=== PATIENT | female | born 1960 | race Caucasian/White ===

== ENCOUNTER → 2019-08-28 14:01 | Outpatient (BNVA) | payer MEDICARE, SELFPAY | PROVIDERS: Family Provider Family Medicine; PCP Family Medicine; Visit Provider Family Medicine | DX: Z13.6 Encounter for screening for cardiovascular disorders (principal); R16.0 Hepatomegaly, not elsewhere classified; E03.9 Hypothyroidism, unspecified; M51.06 Intervertebral disc disorders with myelopathy, lumbar region | CPT/HCPCS: 80053; 80061; 84443; 85025 ==

== ENCOUNTER → 2019-09-25 14:43 | Outpatient (BNVA) | payer MEDICARE, SELFPAY | PROVIDERS: Family Provider Family Medicine; PCP Family Medicine; Visit Provider Psychiatry & Neurology Psychiatry | DX: F41.1 Generalized anxiety disorder (principal); F33.42 Major depressive disorder, recurrent, in full remission; F43.12 Post-traumatic stress disorder, chronic; F17.290 Nicotine dependence, other tobacco product, uncomplicated | CPT/HCPCS: 99213 ==

== ENCOUNTER → 2019-11-25 13:36 | Outpatient (BNVA) | payer MEDICARE, SELFPAY | PROVIDERS: Family Provider Family Medicine; PCP Family Medicine; Visit Provider Family Medicine | DX: D50.9 Iron deficiency anemia, unspecified (principal); E03.9 Hypothyroidism, unspecified; E78.5 Hyperlipidemia, unspecified; M51.06 Intervertebral disc disorders with myelopathy, lumbar region | CPT/HCPCS: 80053; 80061; 82728; 83540; 84443; 85025 ==

== ENCOUNTER → 2019-12-23 08:15 | Outpatient (BNVA) | payer MEDICARE, SELFPAY | PROVIDERS: Family Provider Family Medicine; PCP Family Medicine; Visit Provider Psychiatry & Neurology Psychiatry | DX: F41.1 Generalized anxiety disorder (principal); F33.42 Major depressive disorder, recurrent, in full remission; F43.12 Post-traumatic stress disorder, chronic; F17.290 Nicotine dependence, other tobacco product, uncomplicated | CPT/HCPCS: 99213 ==

== ENCOUNTER 2020-01-29 20:00 | Outpatient (CLI) | payer MEDICARE, SELFPAY | END 2020-01-29 20:01 | disposition home or self-care (01) | LOC: SLEEP 01-30 09:19 | PROVIDERS: Family Provider Family Medicine; PCP Family Medicine; Visit Provider Family Medicine | DX: G47.33 Obstructive sleep apnea (adult) (pediatric) (principal) | CPT/HCPCS: 95811 ==

== ENCOUNTER → 2020-03-25 08:16 | Outpatient (BNVA) | payer MEDICARE, SELFPAY | PROVIDERS: Family Provider Family Medicine; PCP Family Medicine; Visit Provider Psychiatry & Neurology Psychiatry | DX: F33.42 Major depressive disorder, recurrent, in full remission (principal); F43.12 Post-traumatic stress disorder, chronic; F41.1 Generalized anxiety disorder; G47.33 Obstructive sleep apnea (adult) (pediatric) | CPT/HCPCS: 99214 ==

== ENCOUNTER → 2020-04-22 07:51 | Outpatient (BNVA) | payer MEDICARE, SELFPAY | PROVIDERS: Family Provider Family Medicine; PCP Family Medicine; Visit Provider Psychiatry & Neurology Psychiatry | DX: F41.1 Generalized anxiety disorder (principal); F33.42 Major depressive disorder, recurrent, in full remission; F43.12 Post-traumatic stress disorder, chronic; G47.33 Obstructive sleep apnea (adult) (pediatric) | CPT/HCPCS: 99213 ==

== ENCOUNTER → 2020-05-11 15:37 | Outpatient (BNVA) | payer MEDICARE, SELFPAY | PROVIDERS: Family Provider Family Medicine; PCP Family Medicine; Visit Provider Podiatrist Foot & Ankle Surgery | DX: S93.101A Unspecified subluxation of right toe(s), initial encounter (principal); X58.XXXA Exposure to other specified factors, initial encounter | CPT/HCPCS: 73630 ==

== ENCOUNTER → 2020-05-12 13:33 | Outpatient (BNVA) | payer MEDICARE, SELFPAY | PROVIDERS: Family Provider Family Medicine; PCP Family Medicine; Visit Provider Family Medicine | DX: E03.9 Hypothyroidism, unspecified (principal); J43.1 Panlobular emphysema | CPT/HCPCS: 84439; 84443 ==

== ENCOUNTER → 2020-05-27 09:15 | Outpatient (BNVA) | payer MEDICARE, SELFPAY | PROVIDERS: Family Provider Family Medicine; PCP Family Medicine; Visit Provider Psychiatry & Neurology Psychiatry | DX: F43.12 Post-traumatic stress disorder, chronic (principal); F33.42 Major depressive disorder, recurrent, in full remission; F41.1 Generalized anxiety disorder; G47.33 Obstructive sleep apnea (adult) (pediatric) | CPT/HCPCS: 99213 ==

== ENCOUNTER → 2020-08-19 09:31 | Outpatient (BNVA) | payer MEDICARE, SELFPAY | PROVIDERS: Family Provider Family Medicine; PCP Family Medicine; Visit Provider Psychiatry & Neurology Psychiatry | DX: F43.12 Post-traumatic stress disorder, chronic (principal); F33.42 Major depressive disorder, recurrent, in full remission; F41.1 Generalized anxiety disorder; G47.33 Obstructive sleep apnea (adult) (pediatric) | CPT/HCPCS: 99214 ==

== ENCOUNTER → 2020-08-20 13:35 | Outpatient (BNVA) | payer MEDICARE, SELFPAY | PROVIDERS: Family Provider Family Medicine; PCP Family Medicine; Visit Provider Family Medicine | DX: E03.9 Hypothyroidism, unspecified (principal); M17.11 Unilateral primary osteoarthritis, right knee | CPT/HCPCS: 84439; 84443 ==

== ENCOUNTER → 2020-10-29 08:38 | Outpatient (BNVA) | payer MEDICARE, SELFPAY | PROVIDERS: Family Provider Family Medicine; PCP Family Medicine; Visit Provider Psychiatry & Neurology Psychiatry | DX: F33.0 Major depressive disorder, recurrent, mild (principal); G47.33 Obstructive sleep apnea (adult) (pediatric); F41.1 Generalized anxiety disorder; F43.12 Post-traumatic stress disorder, chronic; F17.290 Nicotine dependence, other tobacco product, uncomplicated | CPT/HCPCS: 99214 ==

== ENCOUNTER → 2020-11-25 08:19 | Outpatient (BNVA) | payer MEDICARE, SELFPAY | PROVIDERS: Family Provider Family Medicine; PCP Family Medicine; Visit Provider Psychiatry & Neurology Psychiatry | DX: F33.42 Major depressive disorder, recurrent, in full remission (principal); F41.1 Generalized anxiety disorder; F43.12 Post-traumatic stress disorder, chronic; G47.33 Obstructive sleep apnea (adult) (pediatric) | CPT/HCPCS: 99214 ==

== ENCOUNTER → 2020-12-10 13:16 | Outpatient (BNVA) | payer MEDICARE, SELFPAY | PROVIDERS: Family Provider Family Medicine; PCP Family Medicine; Visit Provider Family Medicine | DX: E78.5 Hyperlipidemia, unspecified (principal); Z13.6 Encounter for screening for cardiovascular disorders; E03.9 Hypothyroidism, unspecified; F17.290 Nicotine dependence, other tobacco product, uncomplicated; Z68.29 Body mass index [BMI] 29.0-29.9, adult | CPT/HCPCS: 80053; 80061; 85025 ==

== ENCOUNTER → 2021-03-15 08:01 | Outpatient (BNVA) | payer MEDICARE, SELFPAY | PROVIDERS: Family Provider Family Medicine; PCP Family Medicine; Visit Provider Psychiatry & Neurology Psychiatry | DX: F33.42 Major depressive disorder, recurrent, in full remission (principal); F41.1 Generalized anxiety disorder; F43.12 Post-traumatic stress disorder, chronic; F17.290 Nicotine dependence, other tobacco product, uncomplicated; G47.33 Obstructive sleep apnea (adult) (pediatric) | CPT/HCPCS: 99214 ==

== ENCOUNTER → 2021-03-16 11:46 | Outpatient (BNVA) | payer MEDICARE, SELFPAY | PROVIDERS: Family Provider Family Medicine; PCP Family Medicine; Visit Provider Family Medicine | DX: E03.9 Hypothyroidism, unspecified (principal); M54.2 Cervicalgia; G89.29 Other chronic pain | CPT/HCPCS: 84439; 84443 ==

== ENCOUNTER → 2021-06-03 07:48 | Outpatient (BNVA) | payer MEDICARE, SELFPAY | PROVIDERS: Family Provider Family Medicine; PCP Family Medicine; Visit Provider Psychiatry & Neurology Psychiatry | DX: F43.12 Post-traumatic stress disorder, chronic (principal); F41.1 Generalized anxiety disorder; F33.42 Major depressive disorder, recurrent, in full remission; G47.33 Obstructive sleep apnea (adult) (pediatric) | CPT/HCPCS: 99213 ==

== ENCOUNTER → 2021-10-11 14:53 | Outpatient (BNVA) | payer MEDICARE, SELFPAY | PROVIDERS: Family Provider Family Medicine; PCP Family Medicine; Visit Provider Family Medicine | DX: E03.9 Hypothyroidism, unspecified (principal); E78.5 Hyperlipidemia, unspecified; F17.290 Nicotine dependence, other tobacco product, uncomplicated; M17.11 Unilateral primary osteoarthritis, right knee | CPT/HCPCS: 80053; 80061; 84443; 85025 ==

== ENCOUNTER → 2021-10-28 13:37 | Outpatient (BNVA) | payer MEDICARE, SELFPAY | PROVIDERS: Family Provider Family Medicine; PCP Family Medicine; Visit Provider Psychiatry & Neurology Psychiatry | DX: F43.12 Post-traumatic stress disorder, chronic (principal); F41.1 Generalized anxiety disorder; F17.290 Nicotine dependence, other tobacco product, uncomplicated; F33.0 Major depressive disorder, recurrent, mild | CPT/HCPCS: 99214 ==

== ENCOUNTER 2021-11-26 06:49 | Outpatient (CLI) | payer MEDICARE, SELFPAY ==
--- NOTE | 2021-11-26 07:15 | MR_ITS ---
WS: [id number] MRI BRAIN WITH AND WITHOUT CONTRAST HISTORY: gait abnormality COMPARISON: None available. TECHNIQUE: Multiplanar imaging performed through the brain with MultiHance 18 ml's IV. No acute infarcts are seen. Haynes-white matter differentiation is well preserved. Very mild small vess el ischemic disease. No prior infarct. No significant atrophy or volume loss. Small arachnoid cyst me asuring 2.1 x 1.1 cm in anterior LEFT middle cranial fossa. No mass effect upon the brain. Mild bilat eral frontal lobe atrophy. No susceptibility artifacts or prior lacunar infarcts. Ventricles and extra-axial spaces are normal. Clivus and pituitary gland are normal. Visualized posterior fossa and brainstem are also normal. Postcontrast images are negative for masses or vascular malformations. Dural venous sinuses are normal. Paranasal sinuses: Well aerated with no significant disease. Mastoid air cells: Normal. Calvarium and scalp: Normal. MR/MR head wo/w con [id number] IMPRESSION: 1. No acute infarct or enhancing mass. 2. Small LEFT anterior middle cranial fossa arachnoid cyst. 3. Very mild small vessel ischemic disease. 4. Mild bilateral frontal lobe atrophy.
[2021-11-26] MEDS: gadobenate dimeglumine 20 mL vial IV (08:09)
== END 2021-11-26 06:50 | disposition home or self-care (01) ==
LOC: RAD 06:49
PROVIDERS: Family Provider Family Medicine; PCP Family Medicine; Visit Provider Family Medicine
DX: R26.9 Unspecified abnormalities of gait and mobility (principal); G93.0 Cerebral cysts; G31.9 Degenerative disease of nervous system, unspecified
CPT/HCPCS: 70553

== ENCOUNTER → 2021-12-02 14:10 | Outpatient (BNVA) | payer MEDICARE, SELFPAY | PROVIDERS: Family Provider Family Medicine; PCP Family Medicine; Visit Provider Psychiatry & Neurology Psychiatry | DX: J44.9 Chronic obstructive pulmonary disease, unspecified (principal); F33.40 Major depressive disorder, recurrent, in remission, unspecified; F41.1 Generalized anxiety disorder; F43.12 Post-traumatic stress disorder, chronic | CPT/HCPCS: 99214 ==

== ENCOUNTER → 2022-08-19 15:18 | Outpatient (BNVA) | payer MEDICARE, SELFPAY | PROVIDERS: Family Provider Family Medicine; PCP Family Medicine; Visit Provider Family Medicine | DX: E03.9 Hypothyroidism, unspecified (principal); D50.9 Iron deficiency anemia, unspecified; D50.8 Other iron deficiency anemias; Z13.6 Encounter for screening for cardiovascular disorders; E78.5 Hyperlipidemia, unspecified; M50.00 Cervical disc disorder with myelopathy, unspecified cervical region | CPT/HCPCS: 80053; 80061; 82728; 83550; 84439; 84443; 85025 ==

== ENCOUNTER → 2023-02-16 14:43 | Outpatient (BNVA) | payer MEDICARE, SELFPAY | PROVIDERS: Family Provider Family Medicine; PCP Family Medicine; Visit Provider Family Medicine | DX: E03.9 Hypothyroidism, unspecified (principal); D50.9 Iron deficiency anemia, unspecified; D50.8 Other iron deficiency anemias; Z13.6 Encounter for screening for cardiovascular disorders; E78.5 Hyperlipidemia, unspecified; M50.00 Cervical disc disorder with myelopathy, unspecified cervical region; J43.1 Panlobular emphysema | CPT/HCPCS: 80053; 80061; 84443 ==

== ENCOUNTER 2023-05-25 14:27 | Outpatient (CLI) | payer MEDICARE, SELFPAY ==
--- NOTE | 2023-05-25 14:38 | MM_ITS ---
WS: [id number] SCREENING DIGITAL TOMOSYNTHESIS MAMMOGRAM WITH CAD HISTORY: Z00.00 - Encounter for general adult medical examination ... COMPARISON: 03/31/2011 Bilateral CC and MLO with tomosynthesis views submitted. Synthetic mammography reviewed. Computer aid ed detection analyzed. Breast composition: There are scattered areas of fibroglandular density. No suspicious masses, microc alcifications or architectural distortion. IMPRESSION: MM/[place] [id number] BI-RADS: 1-Negative FOLLOW UP: 1 Year Follow-up
== END 2023-05-25 14:28 | disposition home or self-care (01) ==
PROVIDERS: Family Provider Family Medicine; PCP Family Medicine; Visit Provider Family Medicine
DX: Z12.31 Encounter for screening mammogram for malignant neoplasm of breast (principal)
CPT/HCPCS: 77063; 77067

== ENCOUNTER → 2023-07-07 14:17 | Outpatient (BNVA) | payer MEDICARE, SELFPAY | PROVIDERS: Family Provider Family Medicine; PCP Family Medicine; Visit Provider Family Medicine | DX: Z13.6 Encounter for screening for cardiovascular disorders (principal); E03.9 Hypothyroidism, unspecified; F17.219 Nicotine dependence, cigarettes, with unspecified nicotine-induced disorders; M17.11 Unilateral primary osteoarthritis, right knee | CPT/HCPCS: 80053; 84443; 85025 ==

== ENCOUNTER 2023-09-28 11:59 | Outpatient (RCR) | payer MEDICARE, SELFPAY | END 2023-10-22 23:59 | disposition home or self-care (01) | LOC: SPT 11:59 | PROVIDERS: Visit Provider Family Medicine | DX: H81.13 Benign paroxysmal vertigo, bilateral (principal) | CPT/HCPCS: 97161 ==

== ENCOUNTER → 2024-01-08 15:40 | Outpatient (BNVA) | payer MEDICARE, SELFPAY | PROVIDERS: Visit Provider Nurse Practitioner | DX: Z79.899 Other long term (current) drug therapy (principal); F43.12 Post-traumatic stress disorder, chronic; F41.1 Generalized anxiety disorder; F33.1 Major depressive disorder, recurrent, moderate | CPT/HCPCS: 80061; 83036 ==

== ENCOUNTER → 2024-04-17 14:31 | Outpatient (BNVA) | payer MEDICARE, SELFPAY | DX: R39.9 Unspecified symptoms and signs involving the genitourinary system (principal); E03.9 Hypothyroidism, unspecified | CPT/HCPCS: 80048; 81000; 84439; 84443; 85025 ==

== ENCOUNTER 2024-05-23 14:49 | Outpatient (CLI) | payer MEDICARE, SELFPAY ==
--- NOTE | 2024-05-23 14:53 | XRR_ITS ---
PROCEDURE INFORMATION: Exam: XR Right Knee Exam date and time: 05/23/2024 3:19 PM Age: 64 years old Clinical indication: Pain and injury or trauma; Blunt trauma; Injury details: Fall on 05/13, right hip and knee pain since; Additional info: Right knee pain TECHNIQUE: Imaging protocol: Radiologic exam of the right knee. Views: 3 views. COMPARISON: CR XR foot RT min 3V* [id number] 05/11/2020 3:43 PM FINDINGS: Bones/joints: There are moderate tricompartment degenerative changes with joint space narrowing, subchondral sclerosis and marginal osteophyte formation. No acute fracture or dislocation. No significant joint effusion. Soft tissues: Normal. XR/XR knee RT 3V* [id number] IMPRESSION: 1. No acute osseous abnormality. 2. Moderate tricompartment degenerative changes
--- NOTE | 2024-05-23 14:53 | XRR_ITS ---
PROCEDURE INFORMATION: Exam: XR Right Hip Exam date and time: 05/23/2024 3:19 PM Age: 64 years old Clinical indication: Pain and injury or trauma; Blunt trauma (contusions or hematomas); Hip pain; Injury details: Fall on 05/13, right hip and knee pain since; Additional info: Right hip pain TECHNIQUE: Imaging protocol: Radiologic exam of the right hip. Views: 1 view hip with pelvis when performed. COMPARISON: CT abdomen pelvis w con* [id number] 05/01/2019 12:30 PM FINDINGS: Bones/joints: There are minimal degenerative changes of the right hip and pubic symphysis. There are small sclerotic densities within the right ischium, pubic bone, and right femoral head suspicious for bone islands. No evidence of acute fracture or dislocation Soft tissues: Unremarkable. XR/XR hip RT 2-3V wo/w pel* [id number] IMPRESSION: No acute osseous abnormality
== END 2024-05-23 14:50 | disposition home or self-care (01) ==
LOC: RAD 14:50
DX: M17.11 Unilateral primary osteoarthritis, right knee (principal); M94.261 Chondromalacia, right knee; M25.761 Osteophyte, right knee; W19.XXXA Unspecified fall, initial encounter
CPT/HCPCS: 73502; 73562

== ENCOUNTER → 2024-07-01 13:13 | Outpatient (BNVA) | payer MEDICARE, SELFPAY | PROVIDERS: Visit Provider Nurse Practitioner | DX: M25.561 Pain in right knee (principal); G89.29 Other chronic pain; M17.11 Unilateral primary osteoarthritis, right knee | CPT/HCPCS: 36415; 73560; 73565; 80053; 81003; 85025; 99204 ==

== ENCOUNTER 2024-07-05 13:11 | Outpatient (CLI) | payer MEDICARE, SELFPAY ==
[2024-07-05 14:14] LABS: Basophils % 0.6 %; Eosinophils # 0.1 10^3/uL (0.0-0.8); Eosinophils % 2.1 %; Hematocrit 38.6 % (36-47); Lymphocytes # 3.3 10^3/uL (0.8-4.8); Lymphocytes % 49.2 %; Mean Corpuscular HGB Conc 31.9 g/dL (30-55); Mean Corpuscular Hemoglobin 29.6 pg (27-33); Mean Platelet Volume 10.3 fL (7.4-10.4); Monocytes # 0.7 10^3/uL (0.2-0.9); Monocytes % 10.3 %; Neutrophils # 2.48 10^3/uL (1.8-7.7); Neutrophils % 37.5 %; Nucleated Red Blood Cells % 0 %; Platelet Count 317 10^3/cmm (157-399); Red Blood Count 4.15 10^6/uL (3.85-5.65); Red Cell Distribution Width 14.5 % (12.1-15.1); White Blood Count 6.61 10^3/uL (3.29-11.43)
--- NOTE | 2024-07-05 14:15 | CT_ITS ---
WS: [id number] CT RIGHT KNEE, NONCONTRAST [facility] TECHNIQUE: Noncontrast CT of the RIGHT knee to include the RIGHT hip and ankle. CLINICAL INFORMATION: chronic pain of right knee, osteoarthritis of right knee COMPARISON: None. DLP: 909.[address] scans at [facility] use at least one of these dose optimization techniques: automated e xposure control; mA and/or kV adjustment per patient size (includes targeted exams where dose is matc hed to clinical indication); or iterative reconstruction. FINDINGS: Advanced tricompartment arthritis RIGHT knee. Small suprapatellar effusion. Hypertrophic changes marimar g the joint line. Advanced degenerative narrowing of the patellofemoral articulation. Hypertrophic pa tella. Osteopenia. Degenerative arthritis sacroiliac joints. CT/CT knee RT [facility] [id number] IMPRESSION: Images obtained for preoperative purposes.
[2024-07-05 14:19] LABS: Bilirubin Urine Negative (Negative); Blood Urine Negative (Negative); Glucose Urine UA Negative (Normal); Ketones Urine Trace (Negative); Leukocyte Esterase Urine Trace (Negative); Nitrate Urine Negative (Negative); Protein Urine Trace (Negative); Urine Appearance Clear (CLEAR); Urine Color Dark Yellow (Yellow); pH Urine 5.5 (5-7)
[2024-07-05 14:21] LABS: Add Urine Microscopic? YES; Bacteria Urine None Seen /hpf; RBC Urine 0-2 /hpf (0-2); Squamous Epithelial Cell Urine 0-5 /hpf (0-5); WBC Urine 0-5 /hpf (0-5)
[2024-07-05 14:32] LABS: Specific Gravity, Urine 1.032 (1.005-1.030)
[2024-07-05 14:52] LABS: Alanine Aminotransferase 9 U/L (0-33); Albumin Level 4.1 g/dL (3.5-5.2); Alkaline Phosphatase 41 U/L (35-105); Aspartate Amino Transferase 22 U/L (0-32); Blood Urea Nitrogen 13 mg/dL (8-23); Calcium 9.6 mg/dL (8.5-10.5); Carbon Dioxide 24 mmol/L (22-29); Chloride 103 mmol/L (98-107); Globulin 2.6 g/dL (1.3-4.6); Glucose 106 mg/dL (65-115); Osmolality Calculated 287 mOsm/kg (285-295); Sodium 138 mmol/L (136-145); Total Bilirubin 0.2 mg/dL (0.15-1.2); Total Protein 6.7 g/dL (6.6-8.7)
== END 2024-07-05 13:12 | disposition home or self-care (01) ==
LOC: RAD 13:12
PROVIDERS: Visit Provider Nurse Practitioner
DX: Z01.818 Encounter for other preprocedural examination (principal); M17.11 Unilateral primary osteoarthritis, right knee; M85.80 Other specified disorders of bone density and structure, unspecified site; M22.41 Chondromalacia patellae, right knee
CPT/HCPCS: 36415; 73700; 80053; 81001; 85025

== ENCOUNTER 2024-07-11 11:44 | Observation (INO) | payer MEDICARE, SELFPAY ==
[2024-07-11] VITALS (18 sets, daily range): BP systolic 103–146; BP diastolic 56–75; PULSE 84–108; RESP 15–27; TEMP 36.1–36.8; O2SAT 93–100
[2024-07-11] MEDS: sodium chloride 0.9% 1,000 ML 30 ML IV (06:20)
[2024-07-11] MEDS: acetaminophen 1,000 MG/100 ML PIGGYBACK 400 MG IV ×2 (06:21→12:05)
[2024-07-11] MEDS: gabapentin 300 mg Capsule PO (06:24)
[2024-07-11] MEDS: CELEcoxib 200 mg Capsule 400 MG PO (06:25)
--- NOTE | 2024-07-11 06:49 | P.ANESASSM_ITS ---
Pre-Anesthetic Assessment Height/Weight: Height 1.66 m Weight 88.451 kg Temp Pulse Resp BP Pulse Ox O2 Del Method 97.2 F L 84 18 103/65 97 Room Air 07/11/24 05:55 07/11/24 05:55 07/11/24 05:55 07/11/24 05:55 07/11/24 05:55 07/11/24 05:55 Operation Date: 07/11/24 07:00 Proposed Procedures p Ariel Robot Total Knee Arthroplasty(Right) - Tressa Lowery MD Familial anesthetic complications: None Was Beta Brenda taken within 24 hours: N/A Was Clonidine taken within 24 hours: N/A Last intake: Intake Last Liquid Date 07/10/24 Last Liquid Time 00:00 Last Solid Date 07/10/24 Last Solid Time 21:30 Social Tobacco and No alcohol Exam alert, oriented x 3, clear to auscultation bilaterally and regular rate & rhythm Airway Mallampati: Class II Pulmonary Chronic Obstructive Pulmonary Disease and Sleep Apnea GI Gastroesophageal Reflux Disease Anesthetic Plan ASA status: 3 Anesthesia: Regional (specify below) Risk of > 500 ml blood loss (7ml/kg in children): Yes, adequate IV access and fluids planned Medications/Allergies Home Medications Medication Instructions Recorded Confirmed Last Taken Type hydrocodone 10 mg-acetaminophen 2 tab PO Q4H PRN Pain 08/28/19 07/11/24 07/11/24 History 325 mg tablet ([place]) fluticasone propionate 50 1 spray intranasal BID #9.9 mL 12/12/19 07/11/24 Unknown Rx mcg/actuation nasal spray,suspension (Flonase Allergy Relief) CPAP #1 ea 02/27/20 07/11/24 Unknown Rx albuterol sulfate 2.5 mg/3 mL 2.5 mg (3 mL) inhalation Q4H PRN 05/12/20 07/11/24 Unknown Rx (0.083 %) solution for nebulization shortness of breath or wheezing #180 mL albuterol sulfate 90 mcg/actuation 2 puff inhalation Q6H PRN 01/15/24 07/11/24 Unknown Rx aerosol inhaler (Ventolin HFA) shortness of breath or wheezing #8.5 grams duloxetine 60 mg capsule,delayed 60 mg PO BID #60 caps 06/27/24 07/11/24 07/11/24 Rx release (Cymbalta) buspirone 30 mg tablet 30 mg PO BID 07/10/24 07/11/24 07/11/24 History fenofibrate nanocrystallized 145 145 mg PO DAILY 07/10/24 07/11/24 07/10/24 History mg tablet fluticasone fur. 200 mcg-umeclid 1 inh inhalation [id number] 07/10/24 07/11/24 Unknown History 62.5 mcg-vilant 25 mcg inhalat.powder (Trelegy Ellipta) levothyroxine 125 mcg tablet 125 mcg PO QPM 07/10/24 07/11/24 07/09/24 History montelukast 10 mg tablet 10 mg PO QPM 07/10/24 07/11/24 07/09/24 History pantoprazole 40 mg tablet,delayed 40 mg PO QPM 07/10/24 07/11/24 07/11/24 History release quetiapine 300 mg tablet (Seroquel) 300 mg PO QPM 07/10/24 07/11/24 07/09/24 History tizanidine 4 mg tablet 4 mg PO TID 07/10/24 07/11/24 07/10/24 History Allergies Allergy/AdvReac Type Severity Reaction Status Date / Time mirtazapine [From Remeron] Allergy Mild UNKNOWN Verified 07/10/24 11:06 shellfish derived Allergy Mild UNKNOWN Verified 07/10/24 11:06 Sulfa (Sulfonamide Allergy Mild UNKNOWN Verified 07/10/24 11:06 Antibiotics) tramadol Allergy Mild UNKNOWN Verified 07/10/24 11:06 venom-honey bee Allergy Mild UNKNOWN Verified 07/10/24 11:06 venom-wasp Allergy Mild UNKNOWN Verified 07/10/24 11:06 milnacipran [From Savella] Allergy UNKNOWN Verified 07/10/24 11:06 Cpgshxc-JPA-LiZ Reductase Allergy UNKNOWN Verified 07/10/24 11:06 Inhibitor [Akqqikd-Jlg-Dhl Reductase Inhibitor] morphine AdvReac Mild UNKNOWN Verified 07/10/24 11:06 Current Medications Generic Name Dose Route Start Last Admin Trade Name Freq PRN Reason Stop Dose Admin Sodium Chloride 1,000 mls @ 30 mls/hr 07/11/24 06:00 07/11/24 06:20 Sodium Chloride 0.9% IV 07/12/24 05:59 30 mls/hr .Q24H VEDA Administration PFSH Anesthesia Medical History Fall Encounter to establish care On combination antipsychotic drug therapy Major depressive disorder, recurrent, moderate Viral syndrome Psychiatric care Iron deficiency anemia Alcohol dependence, in remission Other stimulant dependence, in remission Generalized anxiety disorder Post-traumatic stress disorder, chronic Hepatomegaly Intervertebral disc disorder of cervical region with myelopathy COPD (chronic obstructive pulmonary disease) Hypothyroid Chronic migraine Lumbar disc disorder with myelopathy AWILDA (obstructive sleep apnea) Fibromyalgia PTSD (post-traumatic stress disorder) Bipolar affective Surgical History H/O cataract extraction History of back surgery History of cholecystectomy History of bilateral oophorectomy H/O knee surgery H/O abdominal surgery H/O hand surgery Family History Grandfather Cancer throat cancer Other CAD (coronary artery disease) Diabetes Social History Smoking and tobacco/nicotine status: current every day tobacco/nicotine user cigarettes Packs smoked per day: 0.25 Alcohol intake: never Substance/Drug Use: former Data Anesthesia Cardiac Studies: No Data to Display
[2024-07-11] MEDS: midazolam 1 mg/mL INJ 2 mL 2 MG IVP (06:51)
--- NOTE | 2024-07-11 06:58 | P.HPUD_ITS ---
Surgery/Procedure H&P Update DATE OF PROCEDURE: July 11, 2024 DATE H&P PERFORMED: 07/01/24 H&P UPDATE INFORMATION: I have reviewed H&P completed within last 30 days, I have examined patient prior to procedure, No changes to prior documentation and H&P is in [facility] EMR on date indicated PLANNED PROCEDURE: Operation Date: 07/11/24 07:00 Proposed Procedures p Ariel Robot Total Knee Arthroplasty(Right) - Tressa Lowery MD Related Problem List Diagnoses (1) Osteoarthritis of right knee: Qualifiers: Osteoarthritis type: primary Qualified Code(s): M17.11 - Unilateral primary osteoarthritis, right knee
[2024-07-11] MEDS: ceFAZolin 2,000 mg SDV 2000 MG IVP ×3 (07:15→20:00)
[2024-07-11] MEDS: tranexamic acid 1,000 mg/10mL SDV 1000 MG IV (07:16)
[2024-07-11] MEDS: VANCOMYCIN ADD-Vantage 1,000 MG VIAL 1000 MG XX (08:04)
[2024-07-11] MEDS: ceFAZolin 1,000 mg SDV 2000 MG IRRIGATION (08:04)
--- NOTE | 2024-07-11 10:11 | P.OP_ITS ---
Operative Report Date of procedure: July 11, 2024 Pre-op diagnosis: Primary osteoarthritis right knee with varus deformity and slight flexion contracture Post-op diagnosis: Primary osteoarthritis right knee with varus deformity and slight flexion contracture Post-op findings: Severe degenerative osteoarthritis with large osteophytes, flexion contracture, and varus deformity. Procedure done: Right total knee arthroplasty with Ariel guidance Implants: The Jacob total knee system with a size 3 triathlon beaded cruciate retaining femur right, a triathlon titanium tibial component size 3 beaded, a triathlon X3 tibial bearing CS insert size 3 x 11 mm and a beaded triathlon titanium asymmetric patella size 32 x 10 mm Specimens removed/disposition: Bone, disposed of Pathology: None Surgeon: Tressa Lowery MD Risk Reduction Counselor: Calree Niño NP, whose services were required for retraction, positioning, intraoperative exposure, and closure Anesthesia: Spinal (With MAC, ASA 3) Estimated blood loss (mL): 100 IV fluids (mL): 1,800 Urine output (mL): 700 Complications: None Findings: Severe degenerative osteoarthritis of the right knee with varus deformity and slight flexion contracture. Large osteophytes. Condition: stable Disposition: PACU (Then return to same-day surgery for discharge to home) Brief History: This 64-year-old woman presents today for right total knee arthroplasty. The patient had ongoing chronic right knee pain for several years dating back to as early as 2011. This was worsened in April 2024 when she had a twisting injury. Prior to being seen in the office, the patient had had injection therapies approximately 3 years prior which did not give her relief. X-rays demonstrated severe osteoarthritic change and after discussion in the office, the patient wished to proceed with right total knee arthroplasty. Risks and complications were discussed with her. Consents were signed and questions were answered. Procedure: The patient was brought to the operating theater, and after undergoing spinal anesthesia with MAC, ASA 3, which followed preoperative adductor block, the right lower extremity was prepped with Dura-Prep and draped in usual fashion following placement of a tourniquet high on the leg. The leg was then draped free.? Tourniquet was not elevated throughout the surgical procedure. Prior to commencement of the procedure, a surgical pause was performed, and at the time of the surgical pause, we confirmed the site and side of surgery. Additionally, we confirmed the appropriate and timely administration of preoperative antibiotics, Ancef 2 g.? The availability of equipment was confirmed, and the patient's identity was verbalized as well. Following the surgical pause, an incision was made centering over the patella continuing proximally and distally as necessary to allow access to the knee joint. Dissection continued through skin and soft tissues using a scalpel. Hemostasis was obtained using electrocautery. The skin incision was followed by a median parapatellar arthrotomy. The leg was extended and the patella was able to be displaced laterally.? Appropriate arrays and markers were placed in appropriate position for use of the Ariel.? Preoperative planning had been accomplished and was discussed in detail with the Ariel payroll representative.? Intraoperative mapping of the femur and tibia was accomplished after the arrays were placed.? Internal markers were also placed.? Once we had accomplished the Ariel mapping, we began the appropriate resections for placement of the prosthes is.? The plan was for a cruciate retaining left total knee arthroplasty. Once appropriate mapping had been accomplished retraction was established using manual retraction by surgical technicians and also the Ariel leg positioner and retractors.? The knee was evaluated.? There was significant osteoarthritic change as well as a significant flexion contracture and severe varus deformity.? Appropriate bone resection was accomplished using the Ariel.? The femur was sized to a size 3.? Following femoral cuts, attention was directed to the tibia.? Osteophytes were removed prior to this portion of the procedure.? We had performed a medial release at the beginning of the procedure to allow for placement of the array.? Proximal tibia was evaluated, and it was felt that appropriate size for the tibia was a size 3.? Tray was noted to fit nicely with good coverage.? Rim fit was accomplished with the size 3. A trial reduction was accomplished after osteophytes have been removed as well as the medial and lateral menisci.? We had removed the anterior cruciate ligament at the beginning of the case and preserved the posterior cruciate ligament.? Trial reduction was accomplished with a size 3 femoral cruciate retaining component, a size 3 tibial tray and a size 3 CS tibial bearing insert which was 9 mm. We increased this to a size 10 mm for trial and actual implant was a size 11 mm tibial insert. Alignment was felt to be appropriate as well.? Trial components were removed after the femur had been drilled.? Prior to removal of the tibial tray which had been pinned in position with appropriate rotation as determined by the Ariel plan, we broached the tibia.? Subsequently, the 4 drill holes were made for the prosthetic component.? All trial components were removed, and the wound was irrigated.? Plans were made for insertion of the prosthetic components.? Prior to this, the patella was manually prepared.? After resection of the articular surface with the jigging system, it was measured and measured a 35 mm patella.? We resected approximately 8 mm of patella.? Patellar height was restored with the patellar component. Once again, the wound was irrigated. The Tritanium tibia was impacted into position.? The beaded femur was then impacted into position in a cementless fashion. The CS tibial insert was placed prior to placement of the femoral component. The patella was pressed into position with a patellar clamp.? The knee was then copiously irrigated with betadine and saline and suctioned dry. Attention was then directed to closure. Closure was accomplished with 0 Vicryl in the fascial tissues.? The suture line of 0 Vicryl was supplemented with strata fix, #1, with a running suture from proximal to distal and a second running stitch from distal to proximal.? This was followed by Surgiflo and vancomycin powder.? Following this, a 2-0 Strata Fix was used in the subcutaneous tissues, and the skin was closed with 3-0 Strata fix.? Care was taken to assure an excellent subcutaneous as well as skin closure.? A sterile dressing was then placed consisting of Dermabond Prineo, OpSite, ABD, sterile soft roll, and an Job wrap including over the foot. The patient was returned the Recovery Room in a satisfactory condition. X-rays were obtained and reviewed there.? The patient will be discharged to the floor for postoperative rehabilitation and pain management. Related Problem List Diagnoses (1) Osteoarthritis of right knee:
--- NOTE | 2024-07-11 10:35 | XR_ITS ---
WS: [id number] Right knee, AP and lateral views, 07/11/2024 Clinical Data: Status post right total knee arthroplasty Comparison: AP both knees, right knee, 07/01/2024 Findings: The knee arthroplasty components are in good position. No fractures or dislocations are seen. There i s residual air in the knee joint from recent surgery. XR/XR knee RT 1-2V [id number] Impression: Satisfactory position of components of right knee arthroplasty.
[2024-07-11] MEDS: oxyCODONE 5 mg IR Tab/Cap PO ×3 (12:04→21:28)
--- NOTE | 2024-07-11 12:54 | ANE.PACU2 ---
Inpatient post-anesthesia follow up: Airway intact: Yes Vital signs: Temperature 97 F Pulse Rate 92 Respiratory Rate 15 Blood Pressure 118/67 Pulse Oximetry 100 Oxygen Delivery Me thod Room Air Oxygen Flow Rate Fraction of Inspir ed Oxygen Hydration adequate: Yes Nausea and vomiting: No Pain level: 1 Mental status: Baseline
[2024-07-11] MEDS: chlorhexidine gluconate 0.12% Btl 473 mL 30 ML MUCOUS MEM ×3 (13:03→20:00)
[2024-07-11] MEDS: HYDROcodone-acetaminophen 10-325 mg Tablet 2 TAB PO ×2 (14:54→19:48)
[2024-07-11] MEDS: tizanidine 4 mg Tablet PO (14:55)
[2024-07-11] MEDS: tranexamic acid 1,000 MG/100 ML PREMIX 600 MG IV (14:56)
[2024-07-11] MEDS: BuSPIRONE 10 mg Tablet 30 MG PO (18:45)
[2024-07-11] MEDS: quetiapine 300 mg Tablet PO (18:45)
[2024-07-11] MEDS: iron polysaccharide complex 150 mg Capsule PO (18:45)
[2024-07-11] MEDS: CELEcoxib 200 mg Capsule PO (18:45)
[2024-07-11] MEDS: mupirocin oint 22 gm 1 APPLIC NASAL (18:45)
[2024-07-11] MEDS: duloxetine 60 mg Capsule PO (18:45)
[2024-07-11] MEDS: levothyroxine 125 mcg Tablet PO (18:45)
[2024-07-11] MEDS: montelukast sodium 10 mg Tablet PO (18:45)
[2024-07-11] MEDS: pantoprazole DR 40 mg Tablet PO (18:45)
[2024-07-11] MEDS: tizanidine 4 mg Tablet 8 MG PO (21:32)
--- NOTE | 2024-07-11 22:00 | PC.NURSE ---
Unable to give anymore doses of acetaminophen to patient due to reaching daily limit of 4 grams. This nurse called pharmacy, and they confirmed no more medications with acetaminophen could be given to patient during the 24 hours. This nurse called Dr. Lowery to inquire on anymore pain medication for this patient or she would be limited to having to wait four hours for oxycodone IR, with nothing for breakthrough pain. Dr. Lowery verbalized understanding of the situation and stated no more pain medication would be prescribed for the patient, besides what she already has ordered. This nurse explained to the patient the doctor's orders. Patient verbalized understanding.
[2024-07-12 01:58] VITALS: RESP 18
[2024-07-12] MEDS: oxyCODONE 5 mg IR Tab/Cap PO ×3 (01:58→14:42)
[2024-07-12 04:00] VITALS: BP 123/76; PULSE 77; RESP 18; TEMP 37.2; O2SAT 98
[2024-07-12] MEDS: ceFAZolin 2,000 mg SDV 2000 MG IVP (04:00)
[2024-07-12 04:13] LABS: Basophils % 0.1 %; Eosinophils % 0.1 %; Hematocrit 27.5 % (36-47); Lymphocytes # 2.4 10^3/uL (0.8-4.8); Lymphocytes % 29.2 %; Mean Corpuscular HGB Conc 31.3 g/dL (30-55); Mean Corpuscular Hemoglobin 29.5 pg (27-33); Mean Corpuscular Volume 94.2 fl (85-98); Monocytes # 0.9 10^3/uL (0.2-0.9); Monocytes % 10.7 %; Neutrophils # 4.87 10^3/uL (1.8-7.7); Neutrophils % 59.7 %; Nucleated Red Blood Cells % 0 %; Platelet Count 214 10^3/cmm (157-399); Red Blood Count 2.92 10^6/uL (3.85-5.65); Red Cell Distribution Width 14.5 % (12.1-15.1); White Blood Count 8.16 10^3/uL (3.29-11.43)
[2024-07-12] MEDS: HYDROcodone-acetaminophen 10-325 mg Tablet 2 TAB PO (06:50)
[2024-07-12] MEDS: CELEcoxib 200 mg Capsule PO (06:50)
[2024-07-12] MEDS: iron polysaccharide complex 150 mg Capsule PO (10:01)
[2024-07-12] MEDS: aspirin 325 mg EC Tablet PO (10:02)
[2024-07-12] MEDS: BuSPIRONE 10 mg Tablet 30 MG PO (10:02)
[2024-07-12] MEDS: chlorhexidine gluconate 0.12% Btl 473 mL 30 ML MUCOUS MEM (10:02)
[2024-07-12] MEDS: fenofibrate 145 mg Tablet PO (10:04)
[2024-07-12] MEDS: mupirocin oint 22 gm 1 APPLIC NASAL (10:05)
[2024-07-12] MEDS: tizanidine 4 mg Tablet PO (10:07)
[2024-07-12] MEDS: sennosides-docusate Tablet 2 TAB PO (10:25)
[2024-07-12 10:26] VITALS: RESP 16; O2SAT 98
[2024-07-12] MEDS: acetaminophen 500 mg Tablet 1000 MG PO (10:26)
[2024-07-12] MEDS: duloxetine 60 mg Capsule PO (10:26)
[2024-07-12 10:32] VITALS: BP 110/69; PULSE 82; RESP 17; TEMP 36.8; O2SAT 98
--- NOTE | 2024-07-12 13:48 | P.DS_ITS ---
Discharge Providers Date of Admission: 07/11/24 11:44 Date of Discharge: July 12, 2024 Attending Provider at Admission: Tressa Lowery MD Attending Provider at Discharge: Tressa Lowery MD Primary Care Provider: Elham Ramirez NP Diagnoses at Discharge Discharge Diagnosis (1) Osteoarthritis of right knee: Status: Acute Qualifiers: Osteoarthritis type: primary Qualified Code(s): M17.11 - Unilateral primary osteoarthritis, right knee (2) Status post total right knee replacement not using cement: Status: Acute Permanent problem details: Date of procedure: July 11, 2024 Diagnosis: Primary osteoarthritis right knee with varus deformity and slight flexion contracture Procedure done: Right total knee arthroplasty with Ariel guidance Implants: The Patient [employer] total knee system with a size 3 triathlon beaded cruciate retaining femur right, a triathlon titanium tibial component size 3 beaded, a triathlon X3 tibial bearing CS insert size 3 x 11 mm and a beaded triathlon titanium asymmetric patella size 32 x 10 mm Reason for Visit Reason for Visit: M25.561 Brief History: This 64-year-old woman presents today for right total knee arthroplasty. The patient had ongoing chronic right knee pain for several years dating back to as early as 2011. This was worsened in April 2024 when she had a twisting injury. Prior to being seen in the office, the patient had had injection therapies approximately 3 years prior which did not give her relief. X-rays demonstrated severe osteoarthritic change and after discussion in the office, the patient wished to proceed with right total knee arthroplasty. Risks and complications were discussed with her. Consents were signed and questions were answered. Hospital Course Hospital Course This 64-year-old woman presented to the hospital for same-day surgery in the form of right total knee arthroplasty. This was accomplished uneventfully. The patient was admitted under observation status overnight for postoperative reha bilitation and pain management. She did well and was able to participate with physical therapy. She was felt to be safe for discharge to home. Plans were made for discharge to home and she has to follow-up with me in the office as scheduled. Neurovascularly, she was intact. There is no evidence of DVT. Physical Exam Const: COMMON NORMALS: no acute distress, average body habitus, patient oriented x3 and alert GENERAL APPEARANCE: cooperative and comfortable ORIENTATION/CONSCIOUSNESS: Yes awake HENMT: COMMON NORMALS: normocephalic and atraumatic HEAD & SCALP: normocephalic and atraumatic Eye: GENERAL EYE: appearance normal, both eyes and all related structures Chest: COMMONS NORMALS: normal inspection of the chest Resp: COMMON NORMALS: normal respiratory effort EFFORT & INSPECTION: Yes able to speak in complete sentences and Yes symmetric chest movement Extremity: RIGHT LOWER EXTREMITY: Yes knee joint (Large outer dressing was removed, minimal swelling, no ecchymosis) Right knee: Yes ROM (Able to straight leg raise) and Yes neurovascular exam (No evidence of DVT) Neuro: COMMON NORMALS: patient oriented x3 SENSORIUM/ORIENTATION: Yes alert Psych: COMMON NORMALS: mental status grossly normal APPEARANCE: Yes grossly normal ATTITUDE: Yes calm and Yes engaged ATTENTION/CONCENTRATION: Yes attention grossly intact Skin: COMMON NORMALS: no rashes or lesions noted GENERAL SKIN EXAM: no rashes or lesions noted Urinary Catheter Management: Colon: Cath Placed During This Visit: yes, but has since been removed by the nurse Reason for Continuing Indwelling Catheter: Decision to DC Catheter Urinary Catheter Date of Insertion: 07/11/24 Urinary Catheter Time of Insertion: 07:40 Date Urinary Catheter Removed: 07/12/24 Time Urinary Catheter Discontinued: 06:54 Discharge Data Studies Completed and Pending Completed Studies During Hospitalization Category Date Time Status XR knee RT 1-2V [id number] Urgent Exams 07/11/24 10:35 Completed Radiology Impressions Knee X-Ray 07/11/24 10:35 Impression: Satisfactory position of components of right knee arthroplasty. Laboratory Results WBC 8.16 10^3/uL (3.29-11.43) 07/12/24 04:05 RBC 2.92 10^6/uL (3.85-5.65) L 07/12/24 04:05 Hgb 8.60 g/dL (11.27-16.99) L 07/12/24 04:05 Hct 27.5 % (36-47) L 07/12/24 04:05 MCV 94.2 fl (85-98) 07/12/24 04:05 MCH 29.5 pg (27-33) 07/12/24 04:05 MCHC 31.3 g/dL (30-55) 07/12/24 04:05 RDW 14.5 % (12.1-15.1) 07/12/24 04:05 Plt Count 214 10^3/cmm (157-399) 07/12/24 04:05 MPV 10.0 fL (7.4-10.4) 07/12/24 04:05 Neut % (Auto) 59.7 % 07/12/24 04:05 Lymph % (Auto) 29.2 % 07/12/24 04:05 Moca % (Auto) 10.7 % 07/12/24 04:05 Eos % (Auto) 0.1 % 07/12/24 04:05 Baso % (Auto) 0.1 % 07/12/24 04:05 Neut # (Auto) 4.87 10^3/uL (1.8-7.7) 07/12/24 04:05 Lymph # (Auto) 2.4 10^3/uL (0.8-4.8) 07/12/24 04:05 Moca # (Auto) 0.9 10^3/uL (0.2-0.9) 07/12/24 04:05 Eos # (Auto) 0.0 10^3/uL (0.0-0.8) 07/12/24 04:05 Baso # (Auto) 0.0 10^3/uL (0.0-0.1) 07/12/24 04:05 Nucleated RBC % (auto) 0 % 07/12/24 04:05 Nucleated RBCs # 0.0 /100WBC 07/12/24 04:05 Vitals Last Vital Signs Temp 98.2 F 07/12/24 10:32 Pulse 82 07/12/24 10:32 Resp 17 07/12/24 10:32 BP 110/69 07/12/24 10:32 Pulse Ox 98 07/12/24 10:32 O2 Del Method Room Air 07/12/24 10:32 Discharge Plan Discharge Patient Disposition: Home Health Service Condition: Stable Prescriptions: New celecoxib 200 mg Capsule 200 mg PO 1XD 30 Days Qty: 30 0RF acetaminophen 500 mg Tablet 1,000 mg PO Q8H 15 Days Qty: 90 0RF aspirin 325 mg Tablet,Delayed Release (Dr/Ec) 325 mg PO DAILY 30 Days Qty: 30 0RF oxycodone 5 mg Tablet 5 - 10 mg PO Q4H PRN (Reason: Moderate To Severe Pain) 7 Days Qty: 40 0RF Continued hydrocodone-acetaminophen [[place]] 10-325 mg tablet 2 tab PO Q4H PRN (Reason: Pain) albuterol sulfate 2.5 mg /3 mL (0.083 %) solution for nebulization 2.5 mg INHALATION Q4H PRN (Reason: shortness of breath or wheezing) Qty: 180 1RF Rx Instructions: 340 B albuterol sulfate [Ventolin HFA] 90 mcg/actuation HFA aerosol inhaler 2 puff INHALATION Q6H PRN (Reason: shortness of breath or wheezing) Qty: 8.5 3RF Rx Instructions: 340 B duloxetine [Cymbalta] 60 mg capsule,delayed release(DR/EC) 60 mg PO BID Qty: 60 2RF fluticasone propionate [Flonase Allergy Relief] 50 mcg/actuation spray,suspension 1 spray INTRANASAL BID Qty: 9.9 2RF (DME) CPAP See Rx Instructions .Route .MEDSUPPLY Qty: 1 0RF Rx Instructions: AUTO-TITRATING CPAP 5-9CM quetiapine [Seroquel] 300 mg tablet 300 mg PO QPM tizanidine 4 mg tablet 4 mg PO TID Rx Instructions: TAKE 1 TABLET BY MOUTH THREE TIMES DAILY NEEDED FOR muscle spasticity pantoprazole 40 mg tablet,delayed release (DR/EC) 40 mg PO QPM Rx Instructions: TAKE 1 TABLET BY MOUTH EVERY DAY buspirone 30 mg tablet 30 mg PO BID Rx Instructions: TAKE 1 TABLET BY MOUTH TWICE DAILY levothyroxine 125 mcg tablet 125 mcg PO QPM Rx Instructions: TAKE 1 TABLET BY MOUTH EVERY DAY montelukast 10 mg tablet 10 mg PO QPM Rx Instructions: TAKE 1 TABLET BY MOUTH EVERY DAY fenofibrate nanocrystallized 145 mg tablet 145 mg PO DAILY Rx Instructions: TAKE ONE TABLET BY MOUTH EVERY DAY Trelegy Ellipta 200-62.5-25 mcg blister with device 1 inh inhalation [id number] Rx Instructions: INHALE 1 PUFF every 24 hours Discharge Orders: Discharge Order (Routine); Ordered 07/12/24 Ordered By: Tressa Lowery Referrals: [facility] [Outside] Tressa Lowery MD [Physician] - 07/22/24 8:15 am Discharge Diet: Advance as tolerated and Usual diet Discharge Activity: Increase activity as tolerated, Limit activity as instructed, Use walker/crutches as instructed and As per PT/OT instructions Patient Instructions: Acute Wound Care (DC), Precautions after Total Joint Replacement Surgery (DC), Opioid Safety (DC), Joint Replacement Surgery (DC), Total Knee Replacement (DC), OB Discharge Report, OB Food/Drug Interaction Guide, Post Anesthesia Care Activity Restrictions/Additional Instructions: Elevate right lower extremity. Ice to right knee. Weightbearing as tolerated. Range of motion, strengthening, and ambulation per home physical therapy. You may shower, but do not submerge your knee in water. Discharge Attestations Time Spent in Discharge Care*: greater than 30 min Specific Discharge Activities: educating patient, documenting/other paperwork and evaluating patient/reviewing data Quality Metrics Clinical Quality Measures [ No reported AMI, CVA or VTE this stay] Coding Level of Care Code Acute Code for Chg Fwd Diagnoses Primary osteoarthritis of right knee M17.11 Osteoarthritis type: primary Status post total right knee replacement not using cement Z96.651
[2024-07-12 14:42] VITALS: RESP 16
[2024-07-12 14:50] VITALS: BP 111/51; PULSE 87; RESP 17; TEMP 36.8; O2SAT 98
== END 2024-07-12 14:50 | disposition home health service (06) ==
LOC: OBGYN 11:44
PROVIDERS: Admitting Provider Specialist; Visit Provider Specialist
PROC: 8E0Y0CZ Robotic Assisted Procedure of Lower Extremity, Open Approach (ICD-10-PCS; CPT 27447; principal; 2024-07-11 07:00)
DX: M17.11 Unilateral primary osteoarthritis, right knee (principal); M24.561 Contracture, right knee; M21.161 Varus deformity, not elsewhere classified, right knee; J44.9 Chronic obstructive pulmonary disease, unspecified; G47.30 Sleep apnea, unspecified; K21.9 Gastro-esophageal reflux disease without esophagitis; E03.9 Hypothyroidism, unspecified; G47.33 Obstructive sleep apnea (adult) (pediatric); M79.7 Fibromyalgia; F17.210 Nicotine dependence, cigarettes, uncomplicated
CPT/HCPCS: 27447; 20985; 36415; 51702; 73560; 85025; 97110; 97116; 97161; C1776; G0378; J0131; J0171; J0690; J1100; J2250; J2371; J2704; J2795; J3370; J7030; P9045

== ENCOUNTER → 2024-07-29 10:41 | Outpatient (BNVA) | payer MEDICARE, SELFPAY | PROVIDERS: Visit Provider Specialist | DX: Z96.651 Presence of right artificial knee joint (principal) | CPT/HCPCS: 73560; 73565; 99024 ==

== ENCOUNTER → 2024-10-07 14:44 | Outpatient (BNVA) | payer MEDICARE, SELFPAY | PROVIDERS: Visit Provider Specialist | DX: Z96.651 Presence of right artificial knee joint (principal) | CPT/HCPCS: 73560; 73565; 99024 ==

== ENCOUNTER → 2024-12-31 13:42 | Outpatient (BNVA) | payer MEDICARE, SELFPAY | DX: E03.9 Hypothyroidism, unspecified (principal); R42 Dizziness and giddiness; F17.219 Nicotine dependence, cigarettes, with unspecified nicotine-induced disorders; D50.8 Other iron deficiency anemias | CPT/HCPCS: 80053; 80061; 84439; 84443 ==

== ENCOUNTER → 2025-01-03 10:59 | Outpatient (BNVA) | payer MEDICARE, SELFPAY | DX: D50.8 Other iron deficiency anemias (principal) | CPT/HCPCS: 82728; 83550; 85025 ==

== ENCOUNTER → 2025-01-13 10:51 | Outpatient (BNVA) | payer MEDICARE, SELFPAY | PROVIDERS: Visit Provider Specialist | DX: Z96.651 Presence of right artificial knee joint (principal) | CPT/HCPCS: 73560; 73565; 99213 ==

== ENCOUNTER 2025-01-20 09:46 | Outpatient (CLI) | payer MEDICARE, SELFPAY ==
--- NOTE | 2025-01-20 10:15 | CT_ITS ---
WS: [id number] LDCT LUNG CANCER SCREENING TECHNIQUE: Noncontrast CT of the chest with coronal and sagittal reformatted images. CLINICAL INFORMATION: screening COMPARISON: None. DLP: 61.29 mGy.cm DIvol: Mean CTDIvol: 1.30 (mGy) All CT scans at [facility] use at least one of these dose optimization techniques: automated exposure control; mA and/or kV adjustment per patient size (includes targeted exams where dose is matched to clinical indication); or iterative reconstruction. FINDINGS: A few calcified granulomas. Tiny micronodule RIGHT upper lobe. Inflammatory appearing opacity in the RIGHT upper lobe. A few tiny scattered micronodules. No other suspicious pulmonary parenchymal abnormalities. Aortic calcification. No mediastinal or hilar lymphadenopathy. Coronary calcification. No axillary lymphadenopathy. Cholecystectomy clips. Small esophageal hiatal hernia. Adrenal glands are normal. Moderate thoracic kyphosis. CT/CT lung screening [id number] IMPRESSION: LUNG-RADS: 2-Benign Appearance or Behavior FOLLOW UP: 12 Month: Continue annual screening with LDCT
== END 2025-01-20 09:47 | disposition home or self-care (01) ==
LOC: RAD 09:47
DX: Z12.2 Encounter for screening for malignant neoplasm of respiratory organs (principal); F17.219 Nicotine dependence, cigarettes, with unspecified nicotine-induced disorders; J84.10 Pulmonary fibrosis, unspecified; R91.8 Other nonspecific abnormal finding of lung field; I70.0 Atherosclerosis of aorta; I25.10 Atherosclerotic heart disease of native coronary artery without angina pectoris; Z90.49 Acquired absence of other specified parts of digestive tract; K44.9 Diaphragmatic hernia without obstruction or gangrene; M40.294 Other kyphosis, thoracic region
CPT/HCPCS: 71271

== ENCOUNTER 2025-01-22 10:47 | Outpatient (CLI) | payer MEDICARE, SELFPAY ==
--- NOTE | 2025-01-22 12:40 | MM_ITS ---
WS: [id number] BILATERAL SCREENING DIGITAL TOMOSYNTHESIS MAMMOGRAM WITH CAD HISTORY: screening COMPARISON: 05/25/2023 Bilateral CC and MLO views with tomosynthesis and synthetic mammography submitted. Computer aided detection analyzed. Breast composition: The breasts are almost entirely fatty. No suspicious masses, microcalcifications or architectural distortion. MM/MM scr BI tomosynthesis [id number] IMPRESSION: BI-RADS: 1 - Negative. FOLLOW UP: 1 Year Follow-up
== END 2025-01-22 10:48 | disposition home or self-care (01) ==
LOC: RAD 10:48
DX: Z12.31 Encounter for screening mammogram for malignant neoplasm of breast (principal); R92.313 Mammographic fatty tissue density, bilateral breasts
CPT/HCPCS: 77063; 77067

== ENCOUNTER 2025-05-29 08:21 | Outpatient (CLI) | payer MEDICARE, SELFPAY ==
--- NOTE | 2025-05-29 08:32 | XRR_ITS ---
PROCEDURE INFORMATION: Exam: XR Lumbosacral Spine Exam date and time: 05/29/2025 8:39 AM Age: 65 years old Clinical indication: Pain; Lumbago with sciatica; Right; Prior surgery; Surgery date: 6+ months; Surgery type: Lumbar fusion; Additional info: Lumbosacral spondylosis TECHNIQUE: Imaging protocol: Radiologic exam of the lumbosacral spine. Views: 6 or more views. Including flexion and extension views. COMPARISON: 1. CR XR hip RT 2-3V wo/w pel* [id number] 05/23/2024 3:[address] abdomen pelvis w con* [id number] 05/01/2019 12:30 PM FINDINGS: Tubes, catheters and devices: Posterior metallic fixation device persist at the L4, L5 and S1 level. Unchanged fractured left S1 pedicle screw. Fractured right S1 pedicle screw of uncertain acuity. Bones/joints: 6 mm of L5 anterolisthesis does not change during flexion or extension views. L5 anterolisthesis appears unchanged from prior CT. 5 mm of L3 anterolisthesis does not significantly change during flexion and extension. No acute fracture or vertebral body height loss. Mild degenerative disc changes, most marked at L2-L3 and L5-S1. Soft tissues: Unremarkable. Vasculature: Aortoiliac calcification. XR/XR lumbar spine 6V w f/e [id number] IMPRESSION: 1. S1 pedicle screw fractures bilaterally of uncertain acuity on the right. 2. Chronic mild L5 spondylolisthesis which does not changed during flexion or extension. 3. Mild degenerative disc changes, most marked at L2-L3 and L5-S1.
== END 2025-05-29 08:22 | disposition home or self-care (01) ==
PROVIDERS: Visit Provider Student in an Organized Health Care Education/Training Program
DX: M47.817 Spondylosis without myelopathy or radiculopathy, lumbosacral region (principal); M43.26 Fusion of spine, lumbar region; M43.16 Spondylolisthesis, lumbar region; G31.89 Other specified degenerative diseases of nervous system
CPT/HCPCS: 72114

== ENCOUNTER → 2025-06-02 14:21 | Outpatient (BNVA) | payer MEDICARE, SELFPAY | DX: M25.59 Pain in other specified joint (principal); E78.5 Hyperlipidemia, unspecified; Z13.1 Encounter for screening for diabetes mellitus; D50.8 Other iron deficiency anemias; R10.9 Unspecified abdominal pain | CPT/HCPCS: 80053; 80061; 81000; 83036; 83540; 84443; 85025; 85651; 86140 ==

== ENCOUNTER 2025-06-11 12:07 | Outpatient (CLI) | payer MEDICARE, SELFPAY ==
--- NOTE | 2025-06-11 12:30 | CTR_ITS ---
PROCEDURE INFORMATION: Exam: CT Abdomen And Pelvis With Contrast Exam date and time: 06/11/2025 12:43 PM Age: 65 years old Clinical indication: Abdominal pain; Localized; Right lower quadrant (rlq); Prior surgery; Surgery date: 6+ months; Surgery type: Gb, appy, tubal, bilat ovaries, laproscopic adhesions; Right lower quad pain x 2-3 months, vaginal spotting x 6 months; Additional info: Abdominal pain, vaginal bleeding TECHNIQUE: Imaging protocol: Computed tomography of the abdomen and pelvis with contrast. Radiation optimization: All CT scans at this facility use at least one of these dose optimization techniques: automated exposure control; mA and/or kV adjustment per patient size (includes targeted exams where dose is matched to clinical indication); or iterative reconstruction. Contrast material: OMNI 350; Contrast volume: 100 ml; Contrast route: INTRAVENOUS (IV); COMPARISON: CT abdomen pelvis w con* [id number] 05/01/2019 12:30 PM RADIATION DOSE METRICS: Total DLP (mGy-cm): 401.61 FINDINGS: Liver: Within normal limits. Gallbladder and biliary ducts: The gallbladder is surgically absent. Pancreas: Within normal limits. Spleen: Within normal limits. Adrenal glands: Within normal limits. Kidneys and ureters: Within normal limits. Stomach and bowel: No bowel obstruction. Rectosigmoid colonic wall thickening may be related to incomplete distension. Appendix: The appendix is not well seen. Intraperitoneal space: No significant ascites. Vasculature: Abdominal aorta and iliac arteries are nonaneurysmal with plaque. Lymph nodes: Within normal limits. Urinary bladder: Unremarkable as visualized. Reproductive: Unremarkable as visualized. Bones/joints: Status post L4-S1 posterior spinal fusion with L5 laminectomy. Soft tissues: Unremarkable. CT/CT abdomen pelvis w con* [id number] IMPRESSION: No acute pathology identified. Rectosigmoid colonic wall thickening may be related to incomplete distension.
--- NOTE | 2025-06-11 12:30 | CT_ITS ---
WS: [id number] CT HEAD TECHNIQUE: Noncontrast CT of the head obtained from the skullbase to the vertex. CLINICAL INFORMATION: headache worse, unsteady gait, dizzy COMPARISON: MRI November 2021 DLP: 994.[address] scans at [facility] use at least one of these dose optimization techniques: automated exposure control; mA and/or kV adjustment per patient size (includes targeted exams where dose is matched to clinical indication); or iterative reconstruction. FINDINGS: No evidence of intracranial hemorrhage or mass effect. Ventricular system and basal cisterns are patent. Mild small vessel changes with moderate parenchymal volume loss. Vascular calcification. Incidental small LEFT middle cranial fossa arachnoid cyst unchanged since the prior MRI. 2.3 x 1.1 cm Paranasal sinuses and mastoid air cells are well aerated. .Normal visualized soft tissues. CT/CT head wo con* [id number] IMPRESSION: 1. No evidence of intracranial hemorrhage or mass effect. 2. Mild small vessel changes. Moderate parenchymal volume loss. 3. Vascular calcification. 4. No acute intracranial findings.
[2025-06-11] MEDS: iohexol 350 mg/mL 500 mL Btl (per mL) IV (12:45)
== END 2025-06-11 12:08 | disposition home or self-care (01) ==
LOC: RAD 12:08
DX: K63.89 Other specified diseases of intestine (principal); Z90.49 Acquired absence of other specified parts of digestive tract; I67.82 Cerebral ischemia; G31.89 Other specified degenerative diseases of nervous system
CPT/HCPCS: 70450; 74177

== ENCOUNTER → 2025-06-20 09:11 | Outpatient (BNVA) | payer MEDICARE, SELFPAY | PROVIDERS: Visit Provider Student in an Organized Health Care Education/Training Program | DX: Z12.11 Encounter for screening for malignant neoplasm of colon (principal) | CPT/HCPCS: 99024; 99204 ==

== ENCOUNTER 2025-07-01 07:33 | Day surgery (SDC) | payer MEDICARE, SELFPAY ==
[2025-07-01 08:02] VITALS: BP 121/58; PULSE 98; RESP 18; TEMP 36.9; O2SAT 98; BMI 28.3
--- NOTE | 2025-07-01 08:45 | ANES.PREANE2 ---
Pre-Anesthetic Assessment Height/Weight: Height 1.65 m Weight 77.111 kg Temp Pulse Resp BP Pulse Ox O2 Del Method 98.4 F 98 18 121/58 98 Room Air 07/01/25 08:02 07/01/25 08:02 07/01/25 08:02 07/01/25 08:02 07/01/25 08:02 07/01/25 08:02 Operation Date: 07/01/25 09:00 Proposed Procedures p Colonoscopy 71959 G0105 Z12.11 79392 R10.9(Not Applicable) - John Hussein MD s EGD EGD with Biopsy(Not Applicable) - John Hussien MD Familial anesthetic complications: none Last intake: Intake Last Liquid Date 06/30/25 Last Liquid Time 22:00 Last Solid Date 06/29/25 Last Solid Time 20:00 Social Tobacco and No alcohol 1 pack(s) per day 40 pack years Exam alert, oriented x 3, clear to auscultation bilaterally and regular rate & rhythm Airway Submandibular: within normal limits Cervical ROM: within normal limits Mallampati: Class I Comments: Comments: only bottom teeth present, none loose or broken History/ROS No significant history except as noted Pulmonary Chronic Obstructive Pulmonary Disease, Cough, Exertional Dyspnea, Sleep Apnea and Shortness of Breath uses cpap CV/HEM Stable Angina (was worked up and negative findings several years ago none since) None reported Hepatic fatty liver GI Gastroesophageal Reflux Disease right lower quadrant pain Metabolic Thyroid Disease hypothryroid Musc/skel Fibromyalgia, Lower Back Pain and Osteoarthritis/DJD hx back surgery Neuropsych Anxiety and Depression Anesthetic Plan ASA status: 3 Anesthesia: Anesthesia Evaluation and MAC Risk of > 500 ml blood loss (7ml/kg in children): No Medications/Allergies Home Medications ?Medication ?Instructions ?Recorded ?Confirmed ?Last Taken ?Type CPAP #1 ea 02/27/20 07/01/25 Unknown Rx oxycodone-acetaminophen 10 mg-325 1 tab PO .COMPLEX 09/25/24 07/01/25 07/01/25 History mg tablet 0630 albuterol sulfate 90 mcg/actuation 2 puff inhalation Q6H PRN 12/13/24 07/01/25 1 Week Ago Rx aerosol inhaler (Ventolin HFA) shortness of breath or wheezing ~06/24/25 #8.5 grams duloxetine 60 mg capsule,delayed 60 mg PO BID #60 caps 03/31/25 07/01/25 06/30/25 Rx release buspirone 30 mg tablet 30 mg PO BID #60 tabs 04/11/25 07/01/25 06/30/25 Rx albuterol sulfate 2.5 mg/3 mL 2.5 mg (3 mL) inhalation Q4H PRN 06/02/25 07/01/25 2 Months Ago Rx (0.083 %) solution for nebulization shortness of breath or wheezing ~05/01/25 #180 mL fluticasone fur. 200 mcg-umeclid 1 inh inhalation QDAY #28 ea 06/02/25 07/01/25 06/30/25 Rx 62.5 mcg-vilant 25 mcg inhalat.powder (Trelegy Ellipta) montelukast 10 mg tablet 10 mg PO QPM #90 tabs 06/02/25 07/01/25 06/30/25 Rx omeprazole 40 mg capsule,delayed 40 mg PO BID #60 caps 06/02/25 07/01/25 06/29/25 Rx release quetiapine 300 mg tablet (Seroquel) 450 mg (1.5 x 300 mg) PO QPM #45 06/11/25 07/01/25 06/30/25 Rx tabs fenofibrate nanocrystallized 145 145 mg PO DAILY 06/26/25 07/01/25 06/30/25 History mg tablet levothyroxine 125 mcg tablet 125 mcg PO DAILY 06/26/25 07/01/25 06/30/25 History tizanidine 4 mg tablet 4 mg PO TID PRN Muscle Spasm 06/26/25 07/01/25 06/30/25 History Allergies Allergy/AdvReac Type Severity Reaction Status Date / Time mirtazapine (From Remeron) Allergy Mild UNKNOWN Verified 06/26/25 08:45 shellfish derived Allergy Mild UNKNOWN Verified 06/26/25 08:45 Sulfa (Sulfonamide Allergy Mild UNKNOWN Verified 06/26/25 08:45 Antibiotics) tramadol Allergy Mild UNKNOWN Verified 06/26/25 08:45 venom-honey bee Allergy Mild UNKNOWN Verified 06/26/25 08:45 venom-wasp Allergy Mild UNKNOWN Verified 06/26/25 08:45 milnacipran (From Savella) Allergy UNKNOWN Verified 06/26/25 08:45 Gspokbp-ZUQ-OyA Reductase Allergy UNKNOWN Verified 06/26/25 08:45 Inhibitor (Vbcrlll-Lam-Jff Reductase Inhibitor) morphine AdvReac Mild UNKNOWN Verified 06/26/25 08:45 Current Medications Generic Name Dose Route Start Last Admin Trade Name Freq PRN Reason Stop Dose Admin Sodium Chloride 1,000 mls @ 15 mls/hr 07/01/25 07:45 07/01/25 08:01 Sodium Chloride 0.9% IV 07/02/25 07:44 15 mls/hr .Q24H PRN Administration COLONOSCOPY FLUIDS PFSH Anesthesia Medical History Fall Encounter to establish care On combination antipsychotic drug therapy Major depressive disorder, recurrent, moderate Viral syndrome Psychiatric care Iron deficiency anemia Alcohol dependence, in remission Other stimulant dependence, in remission Generalized anxiety disorder Post-traumatic stress disorder, chronic Hepatomegaly Intervertebral disc disorder of cervical region with myelopathy COPD (chronic obstructive pulmonary disease) Hypothyroid Chronic migraine Lumbar disc disorder with myelopathy AWILDA (obstructive sleep apnea) Fibromyalgia PTSD (post-traumatic stress disorder) Bipolar affective Surgical History Status post total right knee replacement not using cement Date of procedure: July 11, 2024 Diagnosis: Primary osteoarthritis right knee with varus deformity and slight flexion contracture Procedure done: Right total knee arthroplasty with Ariel guidance Implants: The See[employer] total knee system with a size 3 triathlon beaded cruciate retaining femur right, a triathlon titanium tibial component size 3 beaded, a triathlon X3 tibial bearing CS insert size 3 x 11 mm and a beaded triathlon titanium asymmetric patella size 32 x 10 mm H/O cataract extraction History of back surgery History of cholecystectomy History of bilateral oophorectomy H/O knee surgery H/O abdominal surgery H/O hand surgery Family History Grandfather Cancer throat cancer Other CAD (coronary artery disease) Diabetes Social History Smoking and tobacco/nicotine status: current every day tobacco/nicotine user cigarettes Packs smoked per day: 0.25 Alcohol intake: never Substance/Drug Use: former
--- NOTE | 2025-07-01 09:08 | W.PM.OPSUD ---
Surgery/Procedure H&P Update DATE OF PROCEDURE: July 01, 2025 DATE H&P PERFORMED: 06/20/25 H&P UPDATE INFORMATION: I have reviewed H&P completed within last 30 days, I have examined patient prior to procedure, No changes to prior documentation and Risks and benefits of the procedure reviewed PLANNED PROCEDURE: Operation Date: 07/01/25 09:00 Proposed Procedures p Colonoscopy 74596 G0105 Z12.11 27871 R10.9(Not Applicable) - John Hussein MD s EGD EGD with Biopsy(Not Applicable) - John Hussein MD
[2025-07-01 09:35] VITALS: BP 117/68; PULSE 91; RESP 16; TEMP 36.1; O2SAT 92
[2025-07-01 09:45] VITALS: BP 105/75; PULSE 95; RESP 18; O2SAT 96
[2025-07-01 10:08] VITALS: BP 119/81; PULSE 94; RESP 17; O2SAT 97
--- NOTE | 2025-07-01 10:11 | ANE.PACU2 ---
Inpatient post-anesthesia follow up: Airway intact: Yes Vital signs: Temperature 97.0 F Pulse Rate 94 Respiratory Rate 17 Blood Pressure 119/81 Pulse Oximetry 97 Oxygen Delivery Me thod Room Air Oxygen Flow Rate Fraction of Inspir ed Oxygen Hydration adequate: Yes Nausea and vomiting: No Pain level: 1 Mental status: Baseline
== END 2025-07-01 10:11 | disposition home or self-care (01) ==
PROVIDERS: Visit Provider Student in an Organized Health Care Education/Training Program
PROC: 0DJD8ZZ Inspection of Lower Intestinal Tract, Via Natural or Artificial Opening Endoscopic (ICD-10-PCS; CPT 45378; principal; 2025-07-01 09:00)
PROC: 0DJ08ZZ Inspection of Upper Intestinal Tract, Via Natural or Artificial Opening Endoscopic (ICD-10-PCS; 2025-07-01 09:00)
DX: Z12.11 Encounter for screening for malignant neoplasm of colon (principal); D12.8 Benign neoplasm of rectum; K21.9 Gastro-esophageal reflux disease without esophagitis; K29.70 Gastritis, unspecified, without bleeding; D50.9 Iron deficiency anemia, unspecified; F33.9 Major depressive disorder, recurrent, unspecified; F41.9 Anxiety disorder, unspecified; F43.12 Post-traumatic stress disorder, chronic; J44.9 Chronic obstructive pulmonary disease, unspecified; E03.9 Hypothyroidism, unspecified; G47.33 Obstructive sleep apnea (adult) (pediatric); Z99.89 Dependence on other enabling machines and devices; M79.7 Fibromyalgia; Z79.891 Long term (current) use of opiate analgesic; I20.89 Other forms of angina pectoris; F17.210 Nicotine dependence, cigarettes, uncomplicated
CPT/HCPCS: 43239; 45380; 88305; J2704; J3490; J7030; J9999

== ENCOUNTER → 2025-07-21 13:49 | Outpatient (BNVA) | payer MEDICARE, SELFPAY | PROVIDERS: Visit Provider Specialist | DX: M17.11 Unilateral primary osteoarthritis, right knee (principal); Z96.651 Presence of right artificial knee joint | CPT/HCPCS: 73560; 73565; 99214 ==